=== PATIENT | female | born 1950 | race African-American/Black ===

== ENCOUNTER → 2016-04-26 | Day surgery (SDC) | payer MEDICARE, MEDICAID ==
[2016-04-26] VITALS (7 sets, daily range): BP systolic 134–150; BP diastolic 64–87
[~2016-04-26] VITALS: Ht 162.6 cm; Wt 71.7 kg
[~2016-04-26] MED LIST: AMLODIPINE BESYL5 MG ORAL; ASPIRIN EC325 MG ORAL; ATORVASTATIN CA40 MG ORAL; CIPROFLOXACIN500 M2 ORAL; CYCLOBENZAPRINE10 MG ORAL; DILTIAZEM 24HR120 M1 ORAL; ELIQUIS5 MG PO; GABAPENTIN600 MG ORAL; GLIMEPIRIDE1 MG ORAL; HYDROCHLOROTHIA25 MG ORAL; HYDROCODON-ACE1 EA13 ORAL; IBUPROFEN600 MG ORAL; JANUVIA25 MG ORAL; LIPITOR40 MG ORAL; LISINOPRIL10 MG ORAL; METFORMIN HCL500 M1 ORAL; PHENAZOPYRIDIN100 MG ORAL; Propofol 10mg/ml 20ml IV ONE; TRAMADOL HCL50 MG ORAL; TYLENOL EXTRA500 MG ORAL
--- NOTE | 2016-04-26 09:13 | Short Stay Surgery H&P ---
History of Present Illness History of Present Illness Chief Complaint see recent consult note HPI Abby Corey is a 65 year old female who was admitted on for Colon Screening Patient History Allergies: Coded Allergies: No Known Allergies (Unverified , 10/15/12) PAST MEDICAL HISTORY: Past Surgeries: Social History: Medication History Scheduled Apixaban (Eliquis), 5 MG PO Q12HR, (Reported) Aspirin* (Aspirin Ec*), 325 MG ORAL DAILY, (Reported) Atorvastatin Calcium* (Atorvastatin Calcium*), 40 MG ORAL BEDTIME, (Reported) Cyclobenzaprine Hcl* (Flexeril*), 10 MG ORAL DAILY, (Reported) Diltiazem Hcl* (Diltiazem 24HR Er*), 240 MG ORAL DAILY, (Reported) Gabapentin* (Gabapentin*), 600 MG ORAL THREE TIMES A DAY, (Reported) Glimepiride* (Glimepiride*), 2 MG ORAL BEFORE BREAKFAST, (Reported) Hydrochlorothiazide* (Hydrochlorothiazide*), 25 MG ORAL DAILY, (Reported) Hydrocodone Bit/Acetaminophen 10-325* (Hydrocodon-Acetaminophn 10-325*), 1 TAB ORAL Q8H, (Reported) Lisinopril* (Lisinopril*), 20 MG ORAL DAILY, (Reported) Metformin Hcl* (Metformin Hcl*), 1,000 MG ORAL TWICE A DAY, (Reported) Sitagliptin* (Januvia*), 100 MG ORAL DAILY, (Reported) Scheduled PRN Ibuprofen* (Motrin*), 800 MG ORAL Q8H PRN for For Pain, (Reported) Tramadol Hcl* (Ultram*), 50 MG ORAL Q6H PRN for For Pain, (Reported) Plan Attestation Are the patient's medical conditions optimized for surgery? GARY TREJO Apr 26, 2016 09:13
--- NOTE | 2016-04-26 09:14 | Pre-Procedure Note/Attestation ---
Pre-Procedure Note/Attestation Complete Prior to Procedure Planned Procedure: not applicable Procedure Narrative: colonoscopy Indications for Procedure Pre-Operative Diagnosis: screening Attestation I attest that I discussed the nature of the procedure; its benefits; risks and complications; and alternatives (and the risks and benefits of such alternatives ), prior to the procedure, with the patient (or the patient's legal patient account representative). I attest that, if there was a reasonable possibility of needing a blood transfusion, the patient (or the patient's legal patient account representative) was given the [facility] of Health Services standardized written summary, pursuant to the Hakan Oppelo Blood Safety Act ([place] Health and Safety Code # 1645, as amended). I attest that I re-evaluated the patient just prior to the surgery and that there has been no change in the patient's H&P, except as documented below: GARY TREJO Apr 26, 2016 09:13
[2016-04-26 10:57] LABS: BASOPHILS % (AUTO) 1.4 % (0.0-2.0); EOSINOPHILS % (AUTO) 0.6 % (0.0-3.0); LYMPHOCYTES % (AUTO) 29.2 % (20.0-45.0); MEAN CORPUSCULAR HEMOGLOBIN 31.2 PG (27.0-31.0); MEAN CORPUSCULAR VOLUME 97 FL (80-99); MEAN PLATELET VOLUME 7.1 FL (6.5-10.1); MONOCYTES % (AUTO) 10.7 % (1.0-10.0); NEUTROPHILS % (AUTO) 58.2 % (45.0-75.0); PLATELET COUNT 313 K/UL (150-450); RED BLOOD COUNT 4.29 M/UL (4.20-5.40); RED CELL DISTRIBUTION WIDTH 13.2 % (11.6-14.8); WHITE BLOOD COUNT 4.3 K/UL (4.8-10.8)
--- NOTE | 2016-04-26 11:05 | Anethesia Preoperative Eval ---
Anesthesia Pre-op PMH/ROS General Date of Evaluation: Apr 26, 2016 Time of Evaluation: 10:42 Anesthesiologist: clayton ASA Score: ASA 3 Mallampati Score Class I : Soft palate, uvula, fauces, pillars visible Class II: Soft palate, uvula, fauces visible Class III: Soft palate, base of uvula visible Class IV: Only hard plate visible Mallampati Classification: Class II Surgeon: margarito Diagnosis: screening Surgical Procedure: colonoscopy Anesthesia History: none Allergies: Coded Allergies: No Known Allergies (Unverified , 10/15/12) Past Medical History Cardiovascular: Reports: arrhythmia - A. 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 Exam Physician Exam Last Vital Signs Date Time Temp Pulse Resp B/P Pulse Ox O2 Delivery O2 Flow Rate FiO2 04/26/16 10:45 97.7 55 18 139/77 100 Room Air Airway Exam Mallampati Score: Class II Teeth: missing Anesthesia Pre-op A/P Labs Hematology Test 04/26/16 10:35 White Blood Count Pending Red Blood Count Pending Hemoglobin Pending Hematocrit Pending Mean Corpuscular Volume Pending Mean Corpuscular Hemoglobin Pending Mean Corpuscular Hemoglobin Concent Pending Red Cell Distribution Width Pending Platelet Count Pending Mean Platelet Volume Pending Neutrophils (%) (Auto) Pending Lymphocytes (%) (Auto) Pending Monocytes (%) (Auto) Pending Eosinophils (%) (Auto) Pending Basophils (%) (Auto) Pending Coagulation Test 04/26/16 10:35 Prothrombin Time Pending Prothromb Time International Ratio Pending Activated Partial Thromboplast Time Pending Chemistry Test 04/26/16 10:35 Sodium Level Pending Potassium Level Pending Chloride Level Pending Carbon Dioxide Level Pending Blood Urea Nitrogen Pending Creatinine Pending Estimat Glomerular Filtration Rate Pending Glucose Level Pending Calcium Level Pending Risk Assessment & Plan Plan: propofol Status Change Before Surgery: Perry Rai MD Apr 26, 2016 11:05
--- NOTE | 2016-04-26 11:07 | Immediate Post-Op Evaluation ---
Immediate Post-Op Evalulation Immediate Post-Op Evalulation Date of Evaluation: Apr 26, 2016 Time of Evaluation: 11:28 IV Fluids: 300 Blood Pressure Systolic: 143 Blood Pressure Diastolic: 77 Pulse Rate: 58 Respiratory Rate: 19 O2 Sat by Pulse Oximetry: 100 Temperature (Fahrenheit): 97.3 Pain Score (1-10): 0 Nausea: No Vomiting: No Complications none Patient Status: awake, patent, none Hydration Status: adequate Perry Tejada MD Apr 26, 2016 11:07
--- NOTE | 2016-04-26 11:08 | 48 Hour Post Anesthesia Eval ---
Post Anesthesia Evaluation Date of Evaluation: Apr 26, 2016 Time of Evaluation: 11:50 Blood Pressure Systolic: 140 0: 87 Pulse Rate: 59 Respiratory Rate: 20 Temperature (Fahrenheit): 98 O2 Sat by Pulse Oximetry: 99 Airway: patent Nausea: No Vomiting: No Pain Intensity: 0 Hydration Status: adequate Cardiopulmonary Status: stable Mental Status/LOC: patient returned to baseline Follow-up Care/Observations: n/a Post-Anesthesia Complications: tolerated well Follow-up care needed: ready to discharge Perry Tejada MD Apr 26, 2016 11:08
--- NOTE | 2016-04-26 11:11 | Endoscopy Procedure Note ---
Endoscopy Procedure Note Indication for Procedure: screening Procedures Performed: colonoscopy Operative Findings/Diagnosis: diverticulosis Specimen: none Pt Tolerated Procedure Well: Yes Estimated Blood Loss: none Anesthesiologist: clayton Anesthesia: MAC Implant(s) used?: No 50 yrs or older w/o bx or poly: No 10yrs. F/U not recommended: Yes If not recommended, why?: Above average risk 10 yrs. F/U needed: Yes 18 years or older w/prev. colo: No GARY TREJO Apr 26, 2016 11:11
[2016-04-26 11:14] LABS: ANION GAP 12 (5-15); CALCIUM 9.7 mg/dL (8.6-10.2); CARBON DIOXIDE 28 mEQ/L (20-30); CHLORIDE 101 mEQ/L (98-107); CREATININE 0.8 mg/dL (0.5-0.9); GLOMERULAR FILTRATION RATE > 60 mL/min (>60); HEMOLYSIS 68; POTASSIUM 4.8 mEQ/L (3.4-4.9); SODIUM 141 mEQ/L (135-145)
--- NOTE | 2016-04-26 20:08 | Procedure Note ---
DATE OF PROCEDURE: 04/26/2016 SURGEON: Rancho Cox M.D. PROCEDURE: Colonoscopy. ANESTHESIOLOGIST: Perry Tejada M.D. INSTRUMENT: Olympus adult flexible colonoscope. INDICATION: Screening colonoscopy. REASON FOR PROCEDURE: The procedure, risks, benefits, and possible consequences, including hemorrhage, aspiration, perforation and infection, and alternative treatments, were explained to the patient/legal guardian by Dr. Rancho Cox and the patient/legal guardian understood and accepted these risks. DESCRIPTION OF PROCEDURE: After informed consent was obtained and the patient was adequately sedated, first rectal exam was performed, which shows normal. Then, the scope was advanced from the rectum into the cecum. Quality of prep was very poor. Unfortunately, we could not see the cecum very well because of the poor prep. The prep was worse on the right colon contents to the left colon. This examination as I mentioned, was extremely limited. There was no obvious mass seen. There was no obvious large polyps seen. There was some scattered diverticulosis in the left colon, but again we could not see a small polyps most probably because of the prep. Retroflexion of rectum showed evidence of internal hemorrhoids. SUMMARY OF FINDINGS: 1. Extremely poor prep and inadequate examination for polyps specially small polyps given this prep. 2. Diverticulosis. 3. Internal hemorrhoids. RECOMMENDATIONS: We will discuss with the patient regarding the prep. We will consider repeat colonoscopy soon may be in three years given this poor prep. Rancho Cox M.D. DR: Hannah JOB#: [id number] CC: [facility]
--- NOTE | 2016-05-04 08:30 | Cardiology Report ---
APPROVED REPORT EKG Measurement Heart [id number] CO 126P57 [id number] Sinus bradycardia Otherwise normal ECG
== END | disposition home or self-care (01) ==
LOC: GAS 08:58
DX: Z12.11 Encounter for screening for malignant neoplasm of colon (principal); K57.30 Diverticulosis of large intestine without perforation or abscess without bleeding; K64.8 Other hemorrhoids; I48.91 Unspecified atrial fibrillation; E11.9 Type 2 diabetes mellitus without complications; Z79.84 Long term (current) use of oral hypoglycemic drugs; I69.959 Hemiplegia and hemiparesis following unspecified cerebrovascular disease affecting unspecified side; Z79.82 Long term (current) use of aspirin; Z79.899 Other long term (current) drug therapy
CPT/HCPCS: 36415; 80048; 82962; 85025; 85610; 85730; 93005; G0121; J2704; 94003; 94150

== ENCOUNTER → 2016-05-09 | Outpatient (CLI) | payer MEDICARE, MEDICAID ==
[~2016-05-09] MED LIST changes: -Propofol 10mg/ml 20ml IV ONE
--- NOTE | 2016-05-09 13:58 | GI Progress Note ---
Assessment/Plan Problems: (1) Colonic polyp ICD Codes: K63.5 - Polyp of colon SNOMED: 00925430 (2) GERD (gastroesophageal reflux disease) ICD Codes: K21.9 - Gastro-esophageal reflux disease without esophagitis SNOMED: 681148750 (3) Diarrhea ICD Codes: R19.7 - Diarrhea, unspecified SNOMED: 59199144 (4) Colonoscopy planned SNOMED: 127000848 Status: stable Status Narrative Seen with Dr. Cox. Assessment/Plan colonoscopy reviewed >> poor prep + small polyps RTC prn repeat colon x 1 year Subjective Gastrointestinal/Abdominal: Reports: no symptoms Objective T 98.4 BP 112/68 P 62 97 RA General Appearance: no apparent distress, alert Cardiovascular: normal rate Respiratory/Chest: normal breath sounds, no respiratory distress Abdominal Exam: normal bowel sounds, non tender, soft Extremities: normal range of motion Objective Endoscopy Procedure Note Indication for Procedure: screening Procedures Performed: colonoscopy Operative Findings/Diagnosis: diverticulosis GARY COX - Apr 26, 2016 11:11 Juanis Armstrong N.P. May 09, 2016 13:58
[2016-05-09 15:57] VITALS: BP 112/62
== END | disposition home or self-care (01) ==
LOC: PAN 13:02
DX: K63.5 Polyp of colon (principal); K21.9 Gastro-esophageal reflux disease without esophagitis; R19.7 Diarrhea, unspecified
CPT/HCPCS: 99211

== ENCOUNTER → 2016-06-27 | Outpatient (CLI) | payer MEDICARE, MEDICAID ==
--- NOTE | 2016-06-27 14:30 | GI Progress Note ---
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 Cox. Assessment/Plan EUS scheduled for 07-15-16 to evaluate elevated CA19-9 - NPO @ MN day prior procedure colonoscopy reviewed >> poor prep + small polyps RTC prn repeat colon x 1 year Subjective Subjective No GI symptoms noted at this time, here by referral of Dr. Robertson Objective T 98.4 BP 105/61 P 86 95 RA denies weight loss General Appearance: no apparent distress, alert Cardiovascular: normal rate Respiratory/Chest: normal breath sounds, no respiratory distress Abdominal Exam: normal bowel sounds, non tender, soft Extremities: normal range of motion Juanis Armstrong N.P. Jun 27, 2016 14:30
== END | disposition home or self-care (01) ==
LOC: PAN 14:04
DX: Z01.818 Encounter for other preprocedural examination (principal); R79.89 Other specified abnormal findings of blood chemistry; K21.9 Gastro-esophageal reflux disease without esophagitis; R19.7 Diarrhea, unspecified; K63.5 Polyp of colon
CPT/HCPCS: 99211

== ENCOUNTER → 2016-07-15 | Day surgery (SDC) | payer MEDICARE, MEDICAID ==
[~2016-07-15] VITALS: Ht 160 cm; Wt 70.8 kg
[2016-07-15] VITALS (11 sets, daily range): BP systolic 107–140; BP diastolic 56–73
[~2016-07-15] MED LIST changes: +Alfentanil 2ml Inj ONE; +Atropine Inj 1mg/10ml Syr IV PRN; +DiphenhydrAMINE 50mg/ml Inj IVP PRN; +Hydromorphone 0.5mg/0.5ml inj IVP PRN; +Ketorolac 30mg Inj IV PRN; +Ketorolac 60mg Inj IV PRN; +LORazepam Inj 2mg/ml 1ml IV PRN; +LR 1000ml 1,000 ML IVLG SCH; +LR 1000ml ONE; +Labetalol 5mg/ml 20ml vial IV PRN; +Lidocaine 1% Plain 30 ml INJ ONE; +Meperidine 25mg/ml Inj IV PRN; +Metoclopramide 10mg/2ml Inj IVP PRN; +Midazolam 2mg/2ml Inj IVP PRN; +Midazolam 2mg/2ml Inj ONE; +Norco 5mg/325mg tab ORAL PRN; +Norco 7.5mg/325mg tab ORAL PRN; +Oxycodone/Acetaminophen 5-325 ORAL PRN; +Propofol 10mg/ml 20ml IV ONE; +fentaNYL 100 mcg/2 mL IV PRN
--- NOTE | 2016-07-15 10:32 | Pre-Procedure Note/Attestation ---
Pre-Procedure Note/Attestation Complete Prior to Procedure Planned Procedure: not applicable Procedure Narrative: eus Indications for Procedure Pre-Operative Diagnosis: elevated ca 19 Attestation I attest that I discussed the nature of the procedure; its benefits; risks and complications; and alternatives (and the risks and benefits of such alternatives ), prior to the procedure, with the patient (or the patient's legal aircraft sales representative). I attest that, if there was a reasonable possibility of needing a blood transfusion, the patient (or the patient's legal aircraft sales representative) was given the [facility] Services standardized written summary, pursuant to the Hakan [place] Blood Safety Act ([place] Health and Safety Code # 1645, as amended). I attest that I re-evaluated the patient just prior to the surgery and that there has been no change in the patient's H&P, except as documented below: GARY TREJO Jul 15, 2016 10:31
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
--- NOTE | 2016-07-15 12:16 | Anethesia Preoperative Eval ---
Anesthesia Pre-op PMH/ROS General Date of Evaluation: Jul 15, 2016 Time of Evaluation: 11:59 Anesthesiologist: Duncan ASA Score: ASA 3 Mallampati Score Class I : Soft palate, uvula, fauces, pillars visible Class II: Soft palate, uvula, fauces visible Class III: Soft palate, base of uvula visible Class IV: Only hard plate visible Mallampati Classification: Class II Surgeon: Brooke Diagnosis: Abdominal Pain Surgical Procedure: Esophagael Ultrasound Anesthesia History: none Family History: no anesthesia problems Allergies: Coded Allergies: No Known Allergies (Unverified , 10/15/12) Medications: see eMAR Past Medical History Cardiovascular: Reports: CAD, HTN, other - HL Gastrointestinal/Genitourinary: Reports: GERD, other - Diverticulitis Neurologic/Psychiatric: Reports: CVA Endocrine: Reports: DM Anesthesia Pre-op Phys. Exam Physician Exam Last Vital Signs Date Time Temp Pulse Resp B/P Pulse Ox O2 Delivery O2 Flow Rate FiO2 07/15/16 09:34 99.0 63 18 122/73 100 Room Air Constitutional: NAD Neurologic: CN 2-12 intact Cardiovascular: RRR Respiratory: CTA Gastrointestinal: S/NT/ND Airway Exam Mallampati Score: Class II MO: limited ROM: limited Teeth: intact Anesthesia Pre-op A/P Risk Assessment & Plan Assessment: ASA 3 Plan: GA Status Change Before Surgery: Wally Manjarrez MD Jul 15, 2016 12:16
--- NOTE | 2016-07-15 12:18 | Endoscopy Procedure Note ---
Endoscopy Procedure Note Indication for Procedure: elevated ca 19 Procedures Performed: other - EUS Operative Findings/Diagnosis: pancreatitis Specimen: none Pt Tolerated Procedure Well: Yes Estimated Blood Loss: none Anesthesiologist: mackenzie Anesthesia: MAC Implant(s) used?: No 50 yrs or older w/o bx or poly: Not Applicable 10yrs. F/U not recommended: Not Applicable GARY TREJO Jul 15, 2016 12:18
--- NOTE | 2016-07-15 12:20 | Immediate Post-Op Evaluation ---
Immediate Post-Op Evalulation Immediate Post-Op Evalulation Procedure: Espohagael Ultrasound Date of Evaluation: Jul 15, 2016 Time of Evaluation: 12:39 IV Fluids: 800 LR Blood Products: 0 Estimated Blood Loss: 2 Urinary Output: 0 Blood Pressure Systolic: 140 Blood Pressure Diastolic: 65 Pulse Rate: 87 Respiratory Rate: 16 O2 Sat by Pulse Oximetry: 100 Temperature (Fahrenheit): 98.8 Pain Score (1-10): 2 Nausea: No Vomiting: No Complications 0 Patient Status: awake, reacts, patent, none Hydration Status: adequate Wally Song MD Jul 15, 2016 12:20
--- NOTE | 2016-07-15 12:21 | 48 Hour Post Anesthesia Eval ---
Post Anesthesia Evaluation Procedure: Esophagael Ultrasound Date of Evaluation: Jul 15, 2016 Time of Evaluation: 12:39 Blood Pressure Systolic: 140 0: 65 Pulse Rate: 77 Respiratory Rate: 18 Temperature (Fahrenheit): 98.6 O2 Sat by Pulse Oximetry: 100 Airway: patent Nausea: No Vomiting: No Pain Intensity: 2 Hydration Status: adequate Cardiopulmonary Status: Stable Mental Status/LOC: patient returned to baseline Follow-up Care/Observations: 0 Post-Anesthesia Complications: 0 Follow-up care needed: ready to discharge Wally Song MD Jul 15, 2016 12:21
--- NOTE | 2016-07-15 20:59 | Procedure Note ---
DATE OF PROCEDURE: 07/15/2016 SURGEON: Rancho Cox M.D. PROCEDURE: EUS. ANESTHESIA: Wally Song M.D. INSTRUMENT: Olympus EUS scope. INDICATION: Elevated CA 19-9. REASON FOR PROCEDURE: The procedure, risks, benefits, and possible consequences, including hemorrhage, aspiration, perforation and infection, and alternative treatments, were explained to the patient/legal guardian by Dr. Rancho Cox and the patient/legal guardian understood and accepted these risks. PROCEDURE: After informed consent was obtained and the patient was adequately sedated, EUS scope was advanced from mouth into second portion of the duodenum and pancreatic parenchyma was carefully examined through the gastroduodenal mucosa. Starting scanning at the GE junction, left adrenal gland without any obvious adenoma. The patient did not have any celiac axis lymphadenopathy. Then, pancreatic body and tail was examined while the scope was kept in the stomach. The patient had some evidence of some lobulation and stranding of the pancreatic parenchyma suggestive of maybe chronic pancreatitis. No evidence of any pancreatic duct dilatation. Next, the pancreatic duct was barely seen in the body of the pancreas. Then, scope was entered into the duodenal bulb and second portion of the duodenum where the pancreatic head was examined. First, gallbladder was seen with at least a 1 cm stone in it. Common bile duct was not dilated and the maximum dilator was measured about 6.5 mm and that was measured about 4.1 mm at the ampulla. Pancreatic duct was measured 3.6 mm at the ampulla. No obvious peripancreatic lymphadenopathy was seen. The patient tolerated the procedure well without any complication. SUMMARY FINDINGS: 1. Evidence of lobulation and stranding of the pancreatic parenchyma suggestive of chronic pancreatitis. 2. No pancreatic duct and no common bile duct dilatation. 3. Gallstones at least 1 cm. RECOMMENDATIONS: At this time, there is no obvious tumor seen in the common bile duct nor in the pancreas. The patient had symptoms of right upper quadrant pain and biliary colic. We will recommend cholecystectomy given the stone in the gallbladder. The patient also needs a workup for chronic pancreatitis. Rancho Cox M.D. DR: THIAGO JOB#: [id number] CC:
== END | disposition home or self-care (01) ==
LOC: GAS 08:59
DX: R94.8 Abnormal results of function studies of other organs and systems (principal); K80.80 Other cholelithiasis without obstruction; K86.9 Disease of pancreas, unspecified; I25.10 Atherosclerotic heart disease of native coronary artery without angina pectoris; E11.9 Type 2 diabetes mellitus without complications; I10 Essential (primary) hypertension; E78.5 Hyperlipidemia, unspecified; K21.9 Gastro-esophageal reflux disease without esophagitis; I48.91 Unspecified atrial fibrillation; Z86.010 Personal history of colon polyps; Z87.19 Personal history of other diseases of the digestive system; Z79.82 Long term (current) use of aspirin; Z86.73 Personal history of transient ischemic attack (TIA), and cerebral infarction without residual deficits; Z79.84 Long term (current) use of oral hypoglycemic drugs
CPT/HCPCS: 36415; 43237; 82150; 82962; 83690; 86301; J2001; J2250; J2704; J3490; J7120; 94003; 94150

== ENCOUNTER → 2016-07-25 | Outpatient (CLI) | payer MEDICARE, MEDICAID ==
[~2016-07-25] MED LIST changes: -Alfentanil 2ml Inj ONE; -Atropine Inj 1mg/10ml Syr IV PRN; -DiphenhydrAMINE 50mg/ml Inj IVP PRN; -Hydromorphone 0.5mg/0.5ml inj IVP PRN; -Ketorolac 30mg Inj IV PRN; -Ketorolac 60mg Inj IV PRN; -LORazepam Inj 2mg/ml 1ml IV PRN; -LR 1000ml 1,000 ML IVLG SCH; -LR 1000ml ONE; -Labetalol 5mg/ml 20ml vial IV PRN; -Lidocaine 1% Plain 30 ml INJ ONE; -Meperidine 25mg/ml Inj IV PRN; -Metoclopramide 10mg/2ml Inj IVP PRN; -Midazolam 2mg/2ml Inj IVP PRN; -Midazolam 2mg/2ml Inj ONE; -Norco 5mg/325mg tab ORAL PRN; -Norco 7.5mg/325mg tab ORAL PRN; -Oxycodone/Acetaminophen 5-325 ORAL PRN; -Propofol 10mg/ml 20ml IV ONE; -fentaNYL 100 mcg/2 mL IV PRN
--- NOTE | 2016-07-25 14:02 | GI Progress Note ---
Assessment/Plan Problems: (1) Chronic pancreatitis ICD Codes: K86.1 - Other chronic pancreatitis SNOMED: 656510874 (2) Diarrhea ICD Codes: R19.7 - Diarrhea, unspecified SNOMED: 15803846 (3) Encounter for diagnostic endoscopy ICD Codes: Z01.818 - Encounter for other preprocedural examination SNOMED: 221781005, 236416891 (4) GERD (gastroesophageal reflux disease) ICD Codes: K21.9 - Gastro-esophageal reflux disease without esophagitis SNOMED: 871093266 Status: stable Status Narrative Seen with Dr. Cox. Assessment/Plan EUS reviewed with patient, see full report below. RTC prn Subjective Subjective GERD Objective T 97.7 BP 141/77 P 57 100 RA Denies any weight loss. General Appearance: no apparent distress, alert Cardiovascular: normal rate Respiratory/Chest: normal breath sounds, no respiratory distress Abdominal Exam: normal bowel sounds, non tender, soft, no organomegaly, no mass Extremities: normal range of motion Objective DATE OF PROCEDURE: 07/15/2016 SURGEON: Rancho Cox M.D. PROCEDURE: EUS. SUMMARY FINDINGS: 1. Evidence of lobulation and stranding of the pancreatic parenchyma suggestive of chronic pancreatitis. 2. No pancreatic duct and no common bile duct dilatation. 3. Gallstones at least 1 cm. RECOMMENDATIONS: At this time, there is no obvious tumor seen in the common bile duct nor in the pancreas. The patient had symptoms of right upper quadrant pain and biliary colic. We will recommend cholecystectomy given the stone in the gallbladder. The patient also needs a workup for chronic pancreatitis. Juanis Armstrong N.P. Jul 25, 2016 14:02
== END | disposition home or self-care (01) ==
LOC: PAN 13:09
DX: Z01.818 Encounter for other preprocedural examination (principal); K86.1 Other chronic pancreatitis; R19.7 Diarrhea, unspecified; K21.9 Gastro-esophageal reflux disease without esophagitis; K80.80 Other cholelithiasis without obstruction
CPT/HCPCS: 99211

== ENCOUNTER 2016-11-07 13:12 | Outpatient (CLI) | payer MEDICARE, MEDICAID ==
--- NOTE | 2016-11-07 14:04 | Diagnostic Imaging Report ---
Indication: Osteoporosis Technique: 10 mm thick slices obtained through the L2, L3, and L4 vertebral bodies. Cortical and trabecular regions of interest were drawn. The average trabecular bone mineral density was calculated. Total dose length product 31 mGycm. CTDIvol(s) 3x3 mGy. Dose reduction achieved using automated exposure control Comparison: None Findings: The calculated bone mineral density is 102 mg ca-TOMAS/ml. The T score is -2.08. This indicates the patient's bone mineral density is 2.08 standard deviations below that of normal 20-year-old females. The Z score is 0.52. This indicates the patient's bone mineral density is 0.52 standard deviations above that of age-matched controls Impression: Patient mineral density is 10-25% below that of normal 20-year-old females. Patient is considered osteopenic by WHO criteria. Insufficiency fracture risk is moderate The CT scanner at [facility] is accredited by the [employer] and the scans are performed using protocols designed to limit radiation exposure to as low as reasonably achievable to attain images of sufficient resolution adequate for diagnostic evaluation.
== END 2016-11-07 15:12 | disposition home or self-care (01) ==
LOC: CAT 13:12
DX: M81.0 Age-related osteoporosis without current pathological fracture (principal)
CPT/HCPCS: 77078

== ENCOUNTER 2016-12-18 09:25 | Emergency (ER) | payer MEDICARE, MEDICAID ==
[~2016-12-18] VITALS: Ht 162.6 cm; Wt 71.7 kg
[2016-12-18 09:45] VITALS: BP 153/83
[2016-12-18] MEDS ORDERED: Morphine Sulfate 4mg/ml Inj IVP ONE (10:00)
[2016-12-18 10:27] LABS: BASOPHILS % (AUTO) 1.1 % (0.0-2.0); EOSINOPHILS % (AUTO) 0.1 % (0.0-3.0); LYMPHOCYTES % (AUTO) 26.4 % (20.0-45.0); MEAN CORPUSCULAR HEMOGLOBIN 32.3 PG (27.0-31.0); MEAN CORPUSCULAR HGB CONC 32.7 G/DL (32.0-36.0); MEAN CORPUSCULAR VOLUME 99 FL (80-99); MONOCYTES % (AUTO) 9.7 % (1.0-10.0); NEUTROPHILS % (AUTO) 62.7 % (45.0-75.0); PLATELET COUNT 314 K/UL (150-450); RED BLOOD COUNT 3.99 M/UL (4.20-5.40); RED CELL DISTRIBUTION WIDTH 13.5 % (11.6-14.8)
[2016-12-18 10:43] LABS: TROPONIN I < 0.30 ng/mL (<=0.30)
[2016-12-18 10:46] LABS: ALANINE AMINOTRANSFERASE 13 U/L (3-33); ALBUMIN/GLOBULIN RATIO 1.4 (1.0-2.7); ANION GAP 13 (5-15); ASPARTATE AMINO TRANSFERASE 15 U/L (5-40); CARBON DIOXIDE 31 mEQ/L (20-30); CHLORIDE 95 mEQ/L (98-107); CREATININE 0.9 mg/dL (0.5-0.9); GLOMERULAR FILTRATION RATE > 60 mL/min (>60); HEMOLYSIS 3; POTASSIUM 3.6 mEQ/L (3.4-4.9); SODIUM 139 mEQ/L (135-145); TOTAL PROTEIN 7.5 g/dL (6.6-8.7)
--- NOTE | 2016-12-18 11:01 | Diagnostic Imaging Report ---
Indication: Chest pain Comparison: 12/27/15 A single view chest radiograph was obtained. Findings: Cardiomediastinal appearance is within normal limits for age. Pulmonary vascularity is appropriate. The diaphragmatic contour is smooth and costophrenic angles are sharp. No pleural effusions are identified. The aorta is mildly calcified. The bones are osteopenic. Impression: No acute findings
[2016-12-18] MEDS ORDERED: NORCO 5-325 TA1 EACH ORAL (11:11)
[2016-12-18 11:40] VITALS: BP 130/74
--- NOTE | 2016-12-18 13:03 | Emergency Room Report ---
History of Present Illness General Chief Complaint: Pain Source: Patient, Medical Record Present Illness HPI 66-year-old female presents ED for evaluation. Patient says she is having pain in her back radiating up to her neck. Started 2 days ago after she was walking and did not pay attention and her feet hit the curb. Patient never fell or hit her head. Patient states she's been experiencing back and neck pain since. Has history of back pain. Pain is a 10 out of 10, sharp, worse with bending or twisting. No other aggravating relieving factors. Denies any other associated symptoms Allergies: Coded Allergies: No Known Allergies (Unverified , 10/15/12) Patient History Past Medical History: DM, CVA/TIA Past Surgical History: none Pertinent Family History: none Social History: Denies: smoking, alcohol use, drug use Now: No Immunizations: UTD Reviewed Nursing Documentation: PMH: Agreed, PSxH: Agreed Nursing Documentation-PMH Past Medical History: No History, Except For Hx Cardiac Problems: No Hx Hypertension: Yes Hx Diabetes: Yes - Hyperglycemia - Type II DM Hx Cancer: No Hx Gastrointestinal Problems: Yes Hx Neurological Problems: Yes Hx Cerebrovascular Accident: Yes - 2013 - R Hemiplegia Hx Speech Problem: Yes Hx Aphasia: Yes Hx Weakness: Yes - Right side Hx Neurologic Surgery: Yes - Bilateral carpal tunnel repair Review of Systems All Other Systems: negative except mentioned in HPI Physical Exam Vital Signs Date Time Temp Pulse Resp B/P (MAP) Pulse Ox O2 Delivery O2 Flow Rate FiO2 12/18/16 09:33 98.1 85 16 146/78 97 Room Air Sp02 EP Interpretation: reviewed, normal General Appearance: no apparent distress, alert, GCS 15, non-toxic Head: normocephalic, atraumatic Eyes: bilateral eye normal inspection, bilateral eye PERRL ENT: hearing grossly normal, normal pharynx, no angioedema, normal voice Neck: full range of motion, no bony tend, supple/symm/no masses, tender lateral Respiratory: chest non-tender, lungs clear, normal breath sounds, speaking full sentences Cardiovascular #1: regular rate, rhythm, no edema Cardiovascular #2: 2+ carotid (R), 2+ carotid (L), 2+ radial (R), 2+ radial (L) , 2+ dorsalis pedis (R), 2+ dorsalis pedis (L) Gastrointestinal: normal bowel sounds, non tender, soft, non-distended, no guarding, no rebound Rectal: deferred Genitourinary: normal inspection, no CVA tenderness Musculoskeletal: gait/station normal, normal range of motion, non-tender, other - paraspinal tenderness in thoracic and lumbar region Neurologic: alert, oriented x3, responsive, motor strength/tone normal, sensory intact, speech normal Psychiatric: judgement/insight normal, memory normal, mood/affect normal, no suicidal/homicidal ideation Reflexes: 3+ bicep (R), 3+ bicep (L), 3+ tricep (R), 3+ tricep (L), 3+ knee (R) , 3+ knee (L) Skin: normal color, no rash, warm/dry, well hydrated Lymphatic: no adenopathy Medical Decision Making Diagnostic Impression: Primary Impression: Back pain Qualified Codes: M54.9 - Dorsalgia, unspecified ER Course Hospital Course 66-year-old F presents ED complaining of back pain and neck pain. Differential diagnoses include: rib fracture, VA/unstable angina, contusion, muscle strain Clinical course Patient placed on stretcher. After initial history and physical I ordered labs , EKG, chest x-ray. labs reviewed- all electrolytes normal, troponins negative, no leukocytosis, hemoglobin/hematocrit stable EKG - NSR, no acute changes interrpreted by me Chest x-ray-no cardiomegaly, no rib fracture, no pneumothorax, no acute process Clinically exam is consistent with muscle strain. Improved after medication. Given negative workup with normal EKG patient will be discharged I. I feel this is a highly complex case requiring extensive working including EKG/Rhythm strip, Xray/CT/US, Blood/urine lab work, repeat exams while in ED, and administration of strong opiates/narcotics for pain control, admission to hospital or close patient follow up. Diagnosis - back pain Stable and discharged to home with Rx Lexi. Instructed to followup with PMD. Return to ED if symptoms recur or worsen Labs Test 12/18/16 10:10 White Blood Count 7.0 K/UL (4.8-10.8) Red Blood Count 3.99 M/UL (4.20-5.40) Hemoglobin 12.9 G/DL (12.0-16.0) Hematocrit 39.4 % (37.0-47.0) Mean Corpuscular Volume 99 FL (80-99) Mean Corpuscular Hemoglobin 32.3 PG (27.0-31.0) Mean Corpuscular Hemoglobin Concent 32.7 G/DL (32.0-36.0) Red Cell Distribution Width 13.5 % (11.6-14.8) Platelet Count 314 K/UL (150-450) Mean Platelet Volume 8.0 FL (6.5-10.1) Neutrophils (%) (Auto) 62.7 % (45.0-75.0) Lymphocytes (%) (Auto) 26.4 % (20.0-45.0) Monocytes (%) (Auto) 9.7 % (1.0-10.0) Eosinophils (%) (Auto) 0.1 % (0.0-3.0) Basophils (%) (Auto) 1.1 % (0.0-2.0) Sodium Level 139 mEQ/L (135-145) Potassium Level 3.6 mEQ/L (3.4-4.9) Chloride Level 95 mEQ/L (98-107) Carbon Dioxide Level 31 mEQ/L (20-30) Anion Gap 13 (5-15) Blood Urea Nitrogen 14 mg/dL (7-23) Creatinine 0.9 mg/dL (0.5-0.9) Estimat Glomerular Filtration Rate > 60 mL/min (>60) Glucose Level 180 mg/dL (74-106) Calcium Level 10.0 mg/dL (8.6-10.2) Total Bilirubin 0.8 mg/dL (0.0-1.2) Aspartate Amino Transf (AST/SGOT) 15 U/L (5-40) Alanine Aminotransferase (ALT/SGPT) 13 U/L (3-33) Alkaline Phosphatase 55 U/L (35-104) Total Creatine Kinase 100 U/L (26-140) Creatine Kinase MB 2.0 ng/mL (< 3.8) Creatine Kinase MB Relative Index 2.0 Troponin I < 0.30 ng/mL (<=0.30) Total Protein 7.5 g/dL (6.6-8.7) Albumin 4.4 g/dL (3.5-5.2) Globulin 3.1 g/dL Albumin/Globulin Ratio 1.4 (1.0-2.7) EKG Diagnostic Results Rate: normal Rhythm: NSR ST Segments: no acute changes ASA given to the pt in ED: No Rhythm Strip Diag. Results EP Interpretation: yes Rhythm: NSR, no PVC's, no ectopy Chest X-Ray Diagnostic Results Chest X-Ray Diagnostic Results : Chest X-Ray Ordered: Yes # of Views/Limited/Complete: 1 View Indication: Other - back pain EP Interpretation: Yes Interpretation: no consolidation, no effusion, no pneumothorax, no acute cardiopulmonary disease Impression: No acute disease Interpreting ER Provider: Electronically signed by Stevan Hall MD Last Vital Signs Date Time Temp Pulse Resp B/P (MAP) Pulse Ox O2 Delivery O2 Flow Rate FiO2 12/18/16 11:40 72 14 130/74 100 Room Air 12/18/16 09:45 98.5 Status: improved Disposition: HOME, SELF-CARE Condition: Improved Scripts Hydrocodone Bit/Acetaminophen 5-325* (NORCO 5-325*) 1 Each Tablet 1 TAB ORAL Q6H Y for For Pain, #10 TAB 0 Refills Prov: STEVAN HALL M.D. 12/18/16 Patient Instructions: Back Pain, Adult, [id number] STEVAN HALL M.D. Dec 18, 2016 13:03
--- NOTE | 2017-01-05 16:13 | Cardiology Report ---
APPROVED REPORT EKG Measurement Heart [id number] Normal sinus rhythm Possible Left atrial enlargement Borderline ECG
== END 2016-12-18 12:15 | disposition home or self-care (01) ==
LOC: EMR 09:59
DX: M54.9 Dorsalgia, unspecified (principal); M54.2 Cervicalgia; I10 Essential (primary) hypertension; I69.351 Hemiplegia and hemiparesis following cerebral infarction affecting right dominant side; I69.320 Aphasia following cerebral infarction
CPT/HCPCS: 36415; 71010; 80053; 82550; 82553; 84484; 85025; 93005; 96374; 99284; J2270; J7040; 96360; 96361

== ENCOUNTER 2017-07-24 12:20 | Emergency (ER) | payer MEDICARE, MEDICAID ==
[~2017-07-24] VITALS: Ht 165.1 cm; Wt 72.1 kg
[~2017-07-24 12:20] MED LIST changes: +NORCO 5-325 TA1 EACH ORAL
[2017-07-24 12:42] VITALS: BP 151/91
[2017-07-24 13:10] LABS: APPEARANCE,URINE SLIGHTLY CLOUDY; BILIRUBIN, URINE NEGATIVE (NEGATIVE); GLUCOSE, URINE (UA) 4+ (NEGATIVE); KETONES,URINE NEGATIVE (NEGATIVE); LEUKOCYTE ESTERASE ,URINE 3+ (NEGATIVE); NITRITE,URINE POSITIVE (NEGATIVE); PH,URINE 5 (4.5-8.0); PROTEIN,URINE 2+ (NEGATIVE); UROBILINOGEN,URINE NORMAL MG/DL (0.0-1.0)
[2017-07-24 13:11] LABS: COLOR,URINE YELLOW
--- NOTE | 2017-07-24 13:21 | Emergency Room Report ---
History of Present Illness General Chief Complaint: Female Urogenital Problems Source: Patient, Medical Record Present Illness HPI 67-year-old female presents to the emergency department complaining of urinary frequency 4 days. Patient also reports generalized body aches that she rates as 3 out of 10 in severity. Patient denies dysuria, hematuria or external vaginal lesions. Patient states she has a history of diabetes and takes metformin. She denies polydipsia. Patient reports that she does not regularly check her blood sugar. Patient also states she is on Eliquis with a she has a history of CVA. Denies trauma or fall. Denies fevers, chills, abdominal pain or tenderness. She denies polyuria she states she did have a headache a few days ago which has resolved. Denies CP, Palpitations, LOC, AMS, dizziness, Changes in Vision, Sensation, paresthesias, or a sudden severe headache. Allergies: Coded Allergies: No Known Allergies (Unverified , 10/15/12) Patient History Past Medical History: see triage record, DM, CVA/TIA Past Surgical History: none Pertinent Family History: none Reviewed Nursing Documentation: PMH: Agreed; PSxH: Agreed Nursing Documentation-PMH Past Medical History: No History, Except For Hx Cardiac Problems: No Hx Hypertension: Yes Hx Diabetes: Yes - Hyperglycemia - Type II DM Hx Cancer: No Hx Gastrointestinal Problems: Yes Hx Neurological Problems: Yes Hx Cerebrovascular Accident: Yes - 2013 - R Hemiplegia Hx Speech Problem: Yes Hx Aphasia: Yes Hx Weakness: Yes - Right side Hx Neurologic Surgery: Yes - Bilateral carpal tunnel repair Review of Systems All Other Systems: negative except mentioned in HPI Physical Exam Vital Signs Date Time Temp Pulse Resp B/P (MAP) Pulse Ox O2 Delivery O2 Flow Rate FiO2 18 12:25 98.0 67 18 154/90 96 Room Air 98.1 Sp02 EP Interpretation: reviewed, normal General Appearance: no apparent distress, alert, GCS 15, non-toxic Head: normocephalic, atraumatic ENT: hearing grossly normal, normal voice, moist mucus membranes Neck: full range of motion Respiratory: lungs clear, normal breath sounds, no wheezing, speaking full sentences Cardiovascular #1: regular rate, rhythm Gastrointestinal: non tender, soft Rectal: deferred Genitourinary: normal inspection, no CVA tenderness Musculoskeletal: back normal, gait/station normal, normal range of motion Neurologic: alert, oriented x3, responsive, motor strength/tone normal, sensory intact, normal gait, speech normal, grossly normal Psychiatric: judgement/insight normal Skin: normal color, no rash, warm/dry, well hydrated Lymphatic: no adenopathy Medical Decision Making PA Attestation Dr. Vargas is my supervising Physician whom patient management has been discussed with. Diagnostic Impression: Primary Impression: UTI (lower urinary tract infection) Additional Impression: TYPE 2 DIABETES MELLITUS WITH HYPERGLYCEMIA ER Course 67-year-old female presents to the emergency department complaining of urinary frequency 4 days. Patient also reports generalized body aches that she rates as 3 out of 10 in severity. Patient denies dysuria, hematuria or external vaginal lesions. Patient states she has a history of diabetes and takes metformin. She denies polydipsia. Patient reports that she does not regularly check her blood sugar. Patient also states she is on Eliquis with a she has a history of CVA. Denies trauma or fall. Denies fevers, chills, abdominal pain or tenderness. She denies polyuria she states she did have a headache a few days ago which has resolved. Denies CP, Palpitations, LOC, AMS, dizziness, Changes in Vision, Sensation, paresthesias, or a sudden severe headache. Ddx considered but are not limited to UTi , Pyelo, STI, Stone, Cystitis, DM, DI , hyperglycemia just to name a few. Vital signs: are WNL, pt. is afebrile H&PE are most consistent with UTI - will also assess glucose. ORDERS: - UA labs are attached - Nitrite Positive with presence of yeast as well. - 4+ glucose, and elevated protein in the urine ED INTERVENTIONS: None required at this time. -D/w pt. treatment with abx and Monistat, and to follow up with her PMD for evaluation of her glycemic control. DISCHARGE: At this time pt. is stable for d/c to home. Will provide printed patient care instructions, and any necessary prescriptions. Care plan and follow up instructions have been discussed with the patient prior to discharge. Labs Test 07/24/17 12:30 Urine Color Yellow Urine Appearance Slightly cloudy Urine pH 5 (4.5-8.0) Urine Specific [place] 1.025 (1.005-1.035) Urine Protein 2+ (NEGATIVE) Urine Glucose (UA) 4+ (NEGATIVE) Urine Ketones Negative (NEGATIVE) Urine Occult Blood 3+ (NEGATIVE) Urine Nitrite Positive (NEGATIVE) Urine Bilirubin Negative (NEGATIVE) Urine Urobilinogen Normal MG/DL (0.0-1.0) Urine Leukocyte Esterase 3+ (NEGATIVE) Urine RBC 10-15 /HPF (0 - 2) Urine WBC 60-80 /HPF (0 - 2) Urine Squamous Epithelial Cells Moderate /LPF (NONE/OCC) Urine Bacteria Many /HPF (NONE) Urine Yeast Few /HPF (NONE) Last Vital Signs Date Time Temp Pulse Resp B/P (MAP) Pulse Ox O2 Delivery O2 Flow Rate FiO2 07/24/17 12:42 98.1 85 18 151/91 99 Room Air 98.1 Disposition: HOME, SELF-CARE Condition: Stable Scripts Miconazole Nitrate (MONISTAT 7) 44 Gm Cmb.pf.crm 1 APPLIC VG QHS, #44 GM Prov: Inna Anen 07/24/17 Nitrofurantoin Monohyd/M-Cryst* (MACROBID 100 MG*) 100 Mg Capsule 100 MG ORAL EVERY 12 HOURS for 7 Days, #14 CAP Prov: Inna Anne 07/24/17 Referrals: NOT CHOSEN IPA/MD,REFERRING (PCP) Patient Instructions: Hyperglycemia, Qfen-nj-Ponh, Urinary Tract Infection Additional Instructions: Take medications as directed. * your glucose was 237 today * normal is 80- 120. Follow up with a Primary Care Provider in 3-5 days, even if your symptoms have resolved. So your glucose control can be evaluated. --Please review list of primary care clinics, if you do not already have a primary care provider Return sooner to ED if new symptoms occur, or current symptoms become worse. - Please note that this Emergency Department Report was dictated using [employer] mail clerk technology software, occasionally this can lead to erroneous entry secondary to interpretation by the dictation equipment. Inna Anne Jul 24, 2017 13:21
[2017-07-24] MEDS ORDERED: NITROFURANTOIN100 M2 ORAL (13:52)
[2017-07-24] MEDS ORDERED: MONISTAT 744 GM VG (13:52)
[2017-07-24 14:00] VITALS: BP 133/74
== END 2017-07-24 13:59 | disposition home or self-care (01) ==
LOC: EMR 13:16
DX: N39.0 Urinary tract infection, site not specified (principal); E11.65 Type 2 diabetes mellitus with hyperglycemia; I69.351 Hemiplegia and hemiparesis following cerebral infarction affecting right dominant side
CPT/HCPCS: 81003; 82962; 87086; 87181; 99284

== ENCOUNTER 2017-12-02 12:54 | Inpatient (IN) | payer MEDICARE, MEDICAID ==
[~2017-12-02] VITALS: Ht 160 cm; Wt 67.6 kg
[~2017-12-02 12:54] MED LIST changes: +MONISTAT 744 GM VG; +NITROFURANTOIN100 M2 ORAL
[2017-12-02 13:00] VITALS: BP 125/94
--- NOTE | 2017-12-02 13:25 | Emergency Room Report ---
History of Present Illness General Chief Complaint: Generalized Weakness Source: Patient Present Illness HPI Patient is a 59-year-old female who presented after increased generalized weakness and palpitations. Patient prior history of diabetes. She had prior history of irregular heartbeat in the past. Patient currently anticoagulated with Elliquis. She reports having increased rapid heartbeat since last night. This had sudden onset. Patient denies any vomiting or chest discomfort. She reports having some mild shortness of breath. Allergies: Coded Allergies: No Known Allergies (Unverified , 10/15/12) Patient History Past Medical History: see triage record Reviewed Nursing Documentation: PMH: Agreed; PSxH: Agreed Nursing Documentation-PMH Past Medical History: No History, Except For Hx Cardiac Problems: No Hx Hypertension: Yes Hx Diabetes: Yes - Hyperglycemia - Type II DM Hx Cancer: No Hx Gastrointestinal Problems: Yes Hx Neurological Problems: Yes Hx Cerebrovascular Accident: Yes - 2013 - R Hemiplegia Hx Speech Problem: Yes Hx Aphasia: Yes Hx Weakness: Yes - Right side Hx Neurologic Surgery: Yes - Bilateral carpal tunnel repair Review of Systems All Other Systems: negative except mentioned in HPI Physical Exam Vital Signs Date Time Temp Pulse Resp B/P (MAP) Pulse Ox O2 Delivery O2 Flow Rate FiO2 12/02/17 12:58 96.0 130 20 138/85 96 Room Air 96.1 Sp02 EP Interpretation: reviewed, normal General Appearance: normal inspection, well appearing, no apparent distress, alert, GCS 15 Head: atraumatic ENT: normal ENT inspection, hearing grossly normal, normal voice Neck: normal inspection, full range of motion, supple, no bony tend Respiratory: normal inspection, lungs clear, normal breath sounds, no respiratory distress, no retraction, no wheezing Cardiovascular #1: no edema, tachycardia, irregularly irregular Gastrointestinal: normal inspection, normal bowel sounds, non tender, soft, no guarding, no hernia Genitourinary: no CVA tenderness Musculoskeletal: normal inspection, back normal, normal range of motion Neurologic: normal inspection, alert, oriented x3, responsive, school health aide III-XII nml as tested, speech normal Psychiatric: normal inspection, judgement/insight normal, mood/affect normal Skin: normal inspection, normal color, no rash Medical Decision Making Diagnostic Impression: Primary Impression: Atrial fibrillation with RVR ER Course Patient presented for palpitations. The differential diagnosis included was not limited to arrhythmia, thyroid storm, sepsis, anemia, myocardial infarction , alcohol withdrawal, stimulant abuse, caffeine overdose among othersEKG interpreted by showed atrial fibrillation with rapid ventricular response with rate of 138. The patient was given IV Cardizem. The patient was noted to have some improvement in her heart rate after medications.The BNP was noted be markedly elevated consistent with possible heart failure. The patient will likely require admission for further cardiac monitoring and the rate control. The patient was endorsed to Dr. Hall pending authorization for admission or transfer. Labs Test 12/02/17 13:12 White Blood Count 5.6 K/UL (4.8-10.8) Red Blood Count 4.49 M/UL (4.20-5.40) Hemoglobin 13.9 G/DL (12.0-16.0) Hematocrit 42.3 % (37.0-47.0) Mean Corpuscular Volume 94 FL (80-99) Mean Corpuscular Hemoglobin 30.9 PG (27.0-31.0) Mean Corpuscular Hemoglobin Concent 32.9 G/DL (32.0-36.0) Red Cell Distribution Width 12.6 % (11.6-14.8) Platelet Count 347 K/UL (150-450) Mean Platelet Volume 7.5 FL (6.5-10.1) Neutrophils (%) (Auto) 53.5 % (45.0-75.0) Lymphocytes (%) (Auto) 33.7 % (20.0-45.0) Monocytes (%) (Auto) 10.2 % (1.0-10.0) Eosinophils (%) (Auto) 0.7 % (0.0-3.0) Basophils (%) (Auto) 1.9 % (0.0-2.0) Prothrombin Time 10.3 SEC (9.30-11.50) Prothromb Time International Ratio 1.0 (0.9-1.1) Activated Partial Thromboplast Time 26 SEC (23-33) EKG Diagnostic Results Rate: tachycardiac - afib rvr Rhythm Strip Diag. Results EP Interpretation: yes Rhythm: no PVC's, no ectopy, other - tachycardia Chest X-Ray Diagnostic Results Chest X-Ray Diagnostic Results : Chest X-Ray Ordered: Yes # of Views/Limited/Complete: 1 View Indication: Chest Pain EP Interpretation: No Interpretation: no consolidation, no effusion, no pneumothorax, no acute cardiopulmonary disease Impression: No acute disease Electronically Signed by: Electronically signed by Dr. Dany Vargas M.D. Last Vital Signs Date Time Temp Pulse Resp B/P (MAP) Pulse Ox O2 Delivery O2 Flow Rate FiO2 12/02/17 12:58 96.0 130 20 138/85 96 Room Air 96.1 Status: unchanged Disposition: ADMITTED INPATIENT Condition: Serious Dany Vargas MD Dec 02, 2017 13:25
[2017-12-02] MEDS ORDERED: dilTIAZem HCl 25mg/5ml Inj IVP ONE ×2 (13:30→15:30)
[2017-12-02] MEDS ORDERED: Digoxin 0.5mg/2ml Inj IVP ONE (13:30)
[2017-12-02 13:51] LABS: BASOPHILS % (AUTO) 1.9 % (0.0-2.0); EOSINOPHILS % (AUTO) 0.7 % (0.0-3.0); HEMATOCRIT 42.3 % (37.0-47.0); HEMOGLOBIN 13.9 G/DL (12.0-16.0); LYMPHOCYTES % (AUTO) 33.7 % (20.0-45.0); MEAN CORPUSCULAR VOLUME 94 FL (80-99); MONOCYTES % (AUTO) 10.2 % (1.0-10.0); NEUTROPHILS % (AUTO) 53.5 % (45.0-75.0); PLATELET COUNT 347 K/UL (150-450); RED BLOOD COUNT 4.49 M/UL (4.20-5.40); RED CELL DISTRIBUTION WIDTH 12.6 % (11.6-14.8); WHITE BLOOD COUNT 5.6 K/UL (4.8-10.8)
[2017-12-02 13:57] LABS: ANION GAP 6 mmol/L (5-15); BLOOD UREA NITROGEN 14 mg/dL (7-18); CALCIUM 9.1 MG/DL (8.5-10.1); CARBON DIOXIDE 29 MMOL/L (21-32); CHLORIDE 105 MMOL/L (98-107); CREATININE 0.9 MG/DL (0.55-1.30); POTASSIUM 3.4 MMOL/L (3.5-5.1); SODIUM 140 MMOL/L (136-145)
[2017-12-02 14:11] LABS: ALANINE AMINOTRANSFERASE 18 U/L (12-78); ALBUMIN 3.6 G/DL (3.4-5.0); ALKALINE PHOSPHATASE 72 U/L (46-116); ASPARTATE AMINO TRANSFERASE 14 U/L (15-37); BILIRUBIN,TOTAL 0.4 MG/DL (0.2-1.0); CKMB 2.1 NG/ML (0.0-3.6); CREATINE KINASE 79 U/L (26-308)
[2017-12-02 15:00] VITALS: BP 143/117
--- NOTE | 2017-12-02 15:15 | Diagnostic Imaging Report ---
Indication: Shortness of breath Technique: One view of the chest Comparison: 12/18/2016 Findings: The lungs and pleural spaces are clear. The heart size is upper limits of normal. The aorta is tortuous and calcified.. No significant interim change Impression: Negative
[2017-12-02 16:52] VITALS: BP 145/63
[2017-12-02 18:26] VITALS: BP 140/85
[2017-12-02 18:46] VITALS: BP 165/79
[2017-12-02 20:00] VITALS: BP 135/74
[2017-12-02] MEDS: Eliquis 2.5mg tablet ORAL SCH (21:38)
[2017-12-02] MEDS: Metoprolol Tartrate 50mg tab ORAL SCH (21:38)
[2017-12-03] VITALS: BP 145/68
[2017-12-03 04:00] VITALS: BP 141/85
[2017-12-03 07:39] VITALS: BP 135/72
[2017-12-03 07:41] LABS: BASOPHILS % (AUTO) 1.7 % (0.0-2.0); EOSINOPHILS % (AUTO) 1.7 % (0.0-3.0); HEMATOCRIT 42.7 % (37.0-47.0); HEMOGLOBIN 14.2 G/DL (12.0-16.0); LYMPHOCYTES % (AUTO) 45.1 % (20.0-45.0); MEAN CORPUSCULAR VOLUME 92 FL (80-99); MONOCYTES % (AUTO) 10.1 % (1.0-10.0); NEUTROPHILS % (AUTO) 41.3 % (45.0-75.0); PLATELET COUNT 314 K/UL (150-450); RED BLOOD COUNT 4.63 M/UL (4.20-5.40); RED CELL DISTRIBUTION WIDTH 12.4 % (11.6-14.8); WHITE BLOOD COUNT 4.7 K/UL (4.8-10.8)
[2017-12-03] MEDS: Eliquis 2.5mg tablet ORAL SCH ×2 (08:04→20:51)
[2017-12-03] MEDS: metFORMIN 500mg tab ORAL SCH ×2 (08:05→17:16)
[2017-12-03] MEDS: Lisinopril 20mg tab ORAL SCH (08:06)
[2017-12-03] MEDS: Metoprolol Tartrate 50mg tab ORAL SCH ×2 (08:07→20:51)
[2017-12-03 08:09] LABS: ALANINE AMINOTRANSFERASE 18 U/L (12-78); ALBUMIN 3.4 G/DL (3.4-5.0); ALBUMIN/GLOBULIN RATIO 0.9 (1.0-2.7); ALKALINE PHOSPHATASE 71 U/L (46-116); ANION GAP 7 mmol/L (5-15); ASPARTATE AMINO TRANSFERASE 15 U/L (15-37); BILIRUBIN,TOTAL 0.6 MG/DL (0.2-1.0); BLOOD UREA NITROGEN 15 mg/dL (7-18); CALCIUM 9.2 MG/DL (8.5-10.1); CARBON DIOXIDE 29 MMOL/L (21-32); CHLORIDE 105 MMOL/L (98-107); CREATININE 0.8 MG/DL (0.55-1.30); POTASSIUM 3.5 MMOL/L (3.5-5.1); SODIUM 141 MMOL/L (136-145)
[2017-12-03] MEDS ORDERED: Eliquis 2.5mg tablet ORAL SCH (09:00)
[2017-12-03 11:51] VITALS: BP 147/71
--- NOTE | 2017-12-03 14:57 | Cardiology Report ---
APPROVED REPORT EXAM: Two-dimensional and M-mode echocardiogram with Doppler and color Doppler. INDICATION A-FIB M-Mode DIMENSIONS IVSd1.7 (0.7-1.1cm)Left Atrium (MM)3.0 (1.6-4.0cm) LVDd3.9 (3.5-5.6cm)Aortic Root2.9 (2.0-3.7cm) PWd1.8 (0.7-1.1cm)Aortic Cusp Exc.1.8 (1.5-2.0cm) IVSs2.2 cm LVDs2.0 (2.5-4.0cm) PWs1.6 cm Normal left ventricular chamber size, systolic function and wall motion. Left ventricular ejection fraction estimated to be 65-70%. No evidence of left ventricular hypertrophy. No evidence of pericardial effusion. All other cardiac chamber sizes are within normal limits. Focal aortic valve sclerosis with adequate cusp excursion. Thickened mitral valve leaflets with normal excursion. Mitral annulus and aortic root calcification. Pulmonic valve not well visualized. Normal tricuspid valve structure. IVC at normal at size with physiologic collapse. A color flow and spectral Doppler study was performed and revealed: No aortic regurgitation. Moderate mitral regurgitation. Normal left ventricular diastolic function . Mild tricuspid regurgitation. Tricuspid systolic velocities suggests peak right ventricular systolic pressure of 40 mmHg,consistent with mild pulmonary hypertension. Mild Pulmonic regurgitation present.
--- NOTE | 2017-12-03 15:52 | Cardiology Report ---
APPROVED REPORT EKG Measurement Heart [id number] Sinus bradycardia Nonspecific ST and T wave abnormality Abnormal ECG
[2017-12-03 16:00] VITALS: BP 145/71
[2017-12-03 20:00] VITALS: BP 134/70
--- NOTE | 2017-12-03 23:39 | Cardiology Progress Note ---
Objective Last 24 Hour Vital Signs Date Time Temp Pulse Resp B/P (MAP) Pulse Ox O2 Delivery O2 Flow Rate FiO2 12/03/17 21:00 Room Air 12/03/17 20:51 63 134/70 12/03/17 20:00 97.9 63 20 134/70 (91) 98 97.9 12/03/17 20:00 54 12/03/17 16:00 73 12/03/17 16:00 97.7 60 16 145/71 (95) 96 97.7 12/03/17 12:00 66 12/03/17 11:51 97.2 57 18 147/71 (96) 98 97.2 12/03/17 09:00 Room Air 12/03/17 08:07 67 12/03/17 08:07 67 135/72 12/03/17 08:06 135/72 12/03/17 08:00 55 12/03/17 07:39 97.2 67 18 135/72 (93) 98 97.2 12/03/17 04:00 58 12/03/17 04:00 98.1 52 18 141/85 (103) 99 98.1 12/03/17 00:00 52 12/03/17 00:00 98.4 60 18 145/68 (93) 100 98.4 Intake and Output 12/02/17 12/03/17 19:00 07:00 Intake Total 50 ml Output Total 250 ml 450 ml Balance -250 ml -400 ml Intake Oral 50 ml Output Urine Total 250 ml 450 ml # Voids 1 Laboratory Tests Test 12/03/17 06:30 White Blood Count 4.7 K/UL (4.8-10.8) L Red Blood Count 4.63 M/UL (4.20-5.40) Hemoglobin 14.2 G/DL (12.0-16.0) Hematocrit 42.7 % (37.0-47.0) Mean Corpuscular Volume 92 FL (80-99) Mean Corpuscular Hemoglobin 30.7 PG (27.0-31.0) Mean Corpuscular Hemoglobin Concent 33.3 G/DL (32.0-36.0) Red Cell Distribution Width 12.4 % (11.6-14.8) Platelet Count 314 K/UL (150-450) Mean Platelet Volume 7.0 FL (6.5-10.1) Neutrophils (%) (Auto) 41.3 % (45.0-75.0) L Lymphocytes (%) (Auto) 45.1 % (20.0-45.0) H Monocytes (%) (Auto) 10.1 % (1.0-10.0) H Eosinophils (%) (Auto) 1.7 % (0.0-3.0) Basophils (%) (Auto) 1.7 % (0.0-2.0) Sodium Level 141 MMOL/L (136-145) Potassium Level 3.5 MMOL/L (3.5-5.1) Chloride Level 105 MMOL/L (98-107) Carbon Dioxide Level 29 MMOL/L (21-32) Anion Gap 7 mmol/L (5-15) Blood Urea Nitrogen 15 mg/dL (7-18) Creatinine 0.8 MG/DL (0.55-1.30) Estimat Glomerular Filtration Rate > 60 mL/min (>60) Glucose Level 181 MG/DL (74-106) H Calcium Level 9.2 MG/DL (8.5-10.1) Total Bilirubin 0.6 MG/DL (0.2-1.0) Aspartate Amino Transf (AST/SGOT) 15 U/L (15-37) Alanine Aminotransferase (ALT/SGPT) 18 U/L (12-78) Alkaline Phosphatase 71 U/L (46-116) Total Protein 7.1 G/DL (6.4-8.2) Albumin 3.4 G/DL (3.4-5.0) Globulin 3.7 g/dL Albumin/Globulin Ratio 0.9 (1.0-2.7) L Alfonso Villagran MD Dec 03, 2017 23:39
[2017-12-04] VITALS: BP 141/78
--- NOTE | 2017-12-04 03:30 | Consultation ---
DATE OF CONSULTATION: 12/02/2017 CARDIOLOGY CONSULTATION CONSULTING PHYSICIAN: Alfonso Villagran M.D. REFERRING PHYSICIAN: Liv Hinton M.D. REASON FOR CONSULTATION: Tachycardia. HISTORY OF PRESENT ILLNESS: The patient is a very unfortunate 67-year-old female, who presents to the hospital with generalized weakness and palpitation. The patient has a prior history of irregular heartbeat and anticoagulated with Eliquis. The patient started to notice a rapid heartbeat with associated mild shortness of breath. A 12-lead electrocardiogram in the emergency department was significant for atrial fibrillation with a rapid ventricular response. The patient was admitted to telemetry for further evaluation and management. PAST MEDICAL HISTORY: 1. Paroxysmal atrial fibrillation. 2. Diabetes mellitus type 2. 3. Hypertension. 4. Gastrointestinal disease. 5. History of CVA with right hemiplegia in 2012. 6. History of carpal tunnel syndrome. PAST SURGICAL HISTORY: Bilateral carpal tunnel repair. ALLERGIES: No known drug allergies. LIST OF MEDICATIONS: 1. Apixaban 5 mg p.o. twice daily. 2. Aspirin 325 mg daily. 3. Atorvastatin 40 mg at bedtime. 4. Flexeril 10 mg p.o. daily. 5. Diltiazem 240 mg daily. 6. Gabapentin 600 mg three times a day. 7. Glimepiride 2 mg before breakfast. 8. Hydrochlorothiazide 25 mg daily. 9. Hydrocodone/acetaminophen 10/325 one tablet q.8 hours. 10. [place] 5/325 one tablet q.6 hours p.r.n. pain. 11. Lisinopril 20 mg p.o. daily. 12. Metformin 1000 mg twice a day. 13. Monistat 7 one application via vaginal at bedtime. 14. Macrobid 100 mg q.12 hours. REVIEW OF SYSTEMS: HEENT: Denies any headache, diplopia, or blurred vision. CONSTITUTIONAL: Complains of generalized weakness, but no fever, chills, or night sweats. CARDIOVASCULAR: Denies any chest pain, shortness of breath, PND, or orthopnea. She complains of irregular heartbeat. Denies any syncope. PULMONARY: Denies any cough, hemoptysis, or wheezing. GASTROINTESTINAL: Denies any nausea, vomiting, diarrhea, constipation, abdominal pain, or GI bleed. GENITOURINARY: Denies any hematuria, dysuria, or incontinence. PHYSICAL EXAMINATION: VITAL SIGNS: Blood pressure is 138/85, pulse of 130, respirations 20, and O2 saturation 96% on room air. GENERAL: The patient is a 67-year-old lady, in no respiratory distress. HEENT: Anicteric. Pupils are equal, round, and reactive to light and accommodation. Extraocular muscles intact. NECK: JVP less than 5 cm. No carotid bruit. Carotid upstrokes 2+ bilaterally. CARDIOVASCULAR: Normal S1, S2. Regular rate and rhythm. No murmurs, gallops, or rubs. PMI is at fourth intercostal space left midclavicular line. LUNGS: Clear. EXTREMITIES: No evidence of edema, clubbing, or cyanosis. LABORATORY DATA: WBC is 5.6, hemoglobin of 13.9, hematocrit of 42.3, and platelet counts is 347. Sodium 140, potassium 3.4, chloride 105, bicarbonate 29, BUN of 14, and creatinine 0.9. Glucose is 206. Calcium is 9.1. ProBNP is 2162. Troponin I was 0.006. INR is 1.0. Chest x-ray was negative. A 2D echocardiography shows normal LV systolic size and function, LVEF 65% to 70%, moderate mitral regurgitation, mild tricuspid regurgitation with right ventricular systolic pressure measured at 40 mmHg. There is also mild pulmonary regurgitation. ASSESSMENT AND PLAN: This is a very unfortunate 67-year-old female, who is seen in Cardiology consultation with tachycardia. 1. Paroxysmal atrial fibrillation with rapid ventricular response, responded well to Cardizem therapy given to her. 2. Continue monitoring her rhythm. 3. Right hemiplegia, most likely the mechanism of the above findings. 4. Diabetes mellitus. 5. Cerebrovascular accident with right hemiplegia. 6. Carpal tunnel syndrome. I would like to thank Dr. Hinton for the courtesy of this consultation. Alfonso Villagran M.D. DR: WILFRID JOB#: [id number] CC:
[2017-12-04 04:00] VITALS: BP 160/83
[2017-12-04 08:00] VITALS: BP 136/72
[2017-12-04] MEDS: Lisinopril 20mg tab ORAL SCH (08:43)
[2017-12-04] MEDS: Eliquis 2.5mg tablet ORAL SCH ×2 (08:43→19:59)
[2017-12-04] MEDS: Metoprolol Tartrate 50mg tab ORAL SCH ×2 (08:43→20:01)
[2017-12-04] MEDS: metFORMIN 500mg tab ORAL SCH ×2 (08:43→17:02)
--- NOTE | 2017-12-04 10:00 | History and Physical Report ---
DATE OF ADMISSION: 12/03/2017 HISTORY OF PRESENT ILLNESS: The patient is admitted for atrial fibrillation with rapid ventricular response, Cardizem and digoxin were given. The patient did have basically some shortness of breath and palpitations for three weeks, got worse in the past three days, admitted for atrial fibrillation with rapid ventricular response. Denies nausea, vomiting, or diarrhea. Denies shortness of breath. Denies cough. Denies heartburn. Denies chills. PAST MEDICAL HISTORY: History of atrial fibrillation, hypertension, NIDDM, history of CVA with right paresis, hyperlipidemia as well as chronic pain syndrome as well as neuropathy. PAST SURGICAL HISTORY: Bilateral hand surgery. SOCIAL HISTORY: History of smoking. No history of alcohol or illicit drugs. MEDICATIONS: Eliquis, Lipitor, Flexeril, gabapentin, glimepiride, hydrochlorothiazide, lisinopril, and metformin. FAMILY HISTORY: She does have history of hypertension and diabetes. REVIEW OF SYSTEMS: HEENT: Denies headaches. RESPIRATORY: Denies shortness of breath. Denies cough. CARDIOVASCULAR: No chest pain. GASTROINTESTINAL: The patient denies nausea, vomiting, or diarrhea. No fever or chills. PHYSICAL EXAMINATION: VITAL SIGNS: Temperature 97.2, pulse , and blood pressure 147/71. HEENT: PERRLA. NECK: Supple. No lymphadenopathy. CHEST: Clear to auscultation. CARDIOVASCULAR: Irregularly irregular. GASTROINTESTINAL: Soft, nontender, and nondistended. No organomegaly. EXTREMITIES: A 1+ edema. NEUROLOGIC: Reflexes equal on both sides. Moves all four extremities. LABORATORY DATA: WBC of 5.6, hemoglobin 13.9, and platelets 347,000. Sodium 140, potassium 3.4, BUN of 14, creatinine 0.9, and glucose of 206. ASSESSMENT AND PLAN: 1. Atrial fibrillation with rapid ventricular response. 2. Hypokalemia. I have asked Dr. Villagran and Dr. Cid to see the patient for management of above-mentioned diagnoses and treatment. Liv Hinton M.D. DR: BRITTANY JOB#: [id number] CC:
[2017-12-04 12:00] VITALS: BP 128/72
[2017-12-04 16:00] VITALS: BP 147/88
--- NOTE | 2017-12-04 16:30 | General Progress Note ---
Assessment/Plan Problem List: (1) Atrial fibrillation with RVR ICD Codes: I48.91 - Unspecified atrial fibrillation SNOMED: 153206863356615 (2) Back pain ICD Codes: M54.9 - Dorsalgia, unspecified SNOMED: 804712475 Status: progressing Assessment/Plan a fib w rvr is improving treatment of a fib per elementary principal afebrile clinically improving Subjective ROS Limited/Unobtainable: Yes Allergies: Coded Allergies: No Known Allergies (Unverified , 10/15/12) Objective Last 24 Hour Vital Signs Date Time Temp Pulse Resp B/P (MAP) Pulse Ox O2 Delivery O2 Flow Rate FiO2 12/04/17 12:00 98.0 70 18 128/72 (90) 98 98.0 12/04/17 12:00 54 12/04/17 09:00 Room Air 12/04/17 08:43 50 12/04/17 08:43 50 136/72 12/04/17 08:43 136/72 12/04/17 08:00 97.9 50 18 136/72 (93) 96 97.9 12/04/17 08:00 58 12/04/17 04:00 55 12/04/17 04:00 97.7 54 20 160/83 (108) 100 97.7 12/04/17 00:00 97.7 56 20 141/78 (99) 99 97.7 12/04/17 00:00 54 12/03/17 21:00 Room Air 12/03/17 20:51 63 134/70 12/03/17 20:00 97.9 63 20 134/70 (91) 98 97.9 12/03/17 20:00 54 Intake and Output 12/03/17 12/04/17 19:00 07:00 Intake Total 240 ml Balance 240 ml Intake Oral 240 ml # Voids 2 2 # Bowel Movements 2 Height (Feet): 5 Height (Inches): 3.00 Weight (Pounds): 149 Cardiovascular: regularly irregular Respiratory/Chest: lungs clear Liv Hinton MD Dec 04, 2017 16:30
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
[2017-12-04 20:00] VITALS: BP 172/89
[2017-12-04] MEDS ORDERED: LORazepam 1mg tab ORAL PRN (20:00)
--- NOTE | 2017-12-04 23:56 | Cardiology Progress Note ---
Assessment/Plan Assessment/Plan 1. Paroxysmal atrial fibrillation with rapid ventricular response, now in sinus rhythm, continue metoprolol and digoxin. Eliquis for prevention of thromboembolic events. 2. Diabetes mellitus. 3. Hx of Cerebrovascular accident with right hemiplegia. 4. Hx of HTN. Subjective Subjective Sinus rhythm at 66. Objective Last 24 Hour Vital Signs Date Time Temp Pulse Resp B/P (MAP) Pulse Ox O2 Delivery O2 Flow Rate FiO2 12/04/17 21:00 Room Air 12/04/17 20:46 66 12/04/17 20:01 74 172/89 12/04/17 20:00 99.3 74 20 172/89 (116) 97 99.3 12/04/17 16:00 97.6 72 18 147/88 (107) 100 97.6 12/04/17 16:00 66 12/04/17 12:00 98.0 70 18 128/72 (90) 98 98.0 12/04/17 12:00 54 12/04/17 09:00 Room Air 12/04/17 08:43 50 12/04/17 08:43 50 136/72 12/04/17 08:43 136/72 12/04/17 08:00 97.9 50 18 136/72 (93) 96 97.9 12/04/17 08:00 58 12/04/17 04:00 55 12/04/17 04:00 97.7 54 20 160/83 (108) 100 97.7 12/04/17 00:00 97.7 56 20 141/78 (99) 99 97.7 12/04/17 00:00 54 Intake and Output 12/03/17 12/04/17 19:00 07:00 Intake Total 240 ml Balance 240 ml Intake Oral 240 ml # Voids 2 2 # Bowel Movements 2 Objective HEENT: Anicteric. Pupils are equal, round, and reactive to light and accommodation. Extraocular muscles intact. NECK: JVP less than 5 cm. No carotid bruit. Carotid upstrokes 2+ bilaterally. CARDIOVASCULAR: Normal S1, S2. Regular rate and rhythm. No murmurs, gallops, or rubs. PMI is at fourth intercostal space left midclavicular line. LUNGS: Clear ABDOMEN: Soft, non-tender, non-distended, + BS EXTREMITIES: No evidence of edema, clubbing, or cyanosis. Tyshawn,Alfonso MD Dec 04, 2017 23:56
[2017-12-05] VITALS: BP 168/82
[2017-12-05] MEDS ORDERED: LORazepam 1mg tab ORAL PRN (02:36)
[2017-12-05 04:00] VITALS: BP 151/78
[2017-12-05 08:57] VITALS: BP 140/75
[2017-12-05] MEDS ORDERED: Lisinopril 20mg tab ORAL SCH (09:00)
[2017-12-05] MEDS ORDERED: Metoprolol Tartrate 50mg tab ORAL SCH (09:00)
[2017-12-05] MEDS: Eliquis 2.5mg tablet ORAL SCH ×2 (09:42→21:06)
[2017-12-05] MEDS: metFORMIN 500mg tab ORAL SCH ×2 (09:42→18:49)
[2017-12-05 12:00] VITALS: BP 148/74
--- NOTE | 2017-12-05 12:12 | General Progress Note ---
Assessment/Plan Problem List: (1) Atrial fibrillation with RVR ICD Codes: I48.91 - Unspecified atrial fibrillation SNOMED: 365635908501471 (2) Back pain ICD Codes: M54.9 - Dorsalgia, unspecified SNOMED: 363481109 Status: progressing Assessment/Plan a fib w rvr is improving treatment of a fib per oil field roustabout no cp no palpitation discuss w oil field roustabout re plan of care Subjective ROS Limited/Unobtainable: Yes Constitutional: Reports: no symptoms Allergies: Coded Allergies: No Known Allergies (Unverified , 10/15/12) Objective Last 24 Hour Vital Signs Date Time Temp Pulse Resp B/P (MAP) Pulse Ox O2 Delivery O2 Flow Rate FiO2 12/05/17 09:43 140/75 12/05/17 09:00 50 12/05/17 08:57 98.1 49 18 140/75 (96) 98 98.1 12/05/17 04:00 98.3 59 18 151/78 (102) 99 98.3 12/05/17 00:00 98.0 96 20 168/82 (110) 98 98.0 12/05/17 00:00 52 12/04/17 21:00 Room Air 12/04/17 20:46 66 12/04/17 20:01 74 172/89 12/04/17 20:00 99.3 74 20 172/89 (116) 97 99.3 12/04/17 16:00 97.6 72 18 147/88 (107) 100 97.6 12/04/17 16:00 66 Intake and Output 12/04/17 12/05/17 19:00 07:00 Intake Total 360 ml 100 ml Balance 360 ml 100 ml Intake Oral 360 ml 100 ml # Voids 2 2 Height (Feet): 5 Height (Inches): 3.00 Weight (Pounds): 149 Neck: supple Cardiovascular: normal rate Respiratory/Chest: lungs clear Abdomen: soft Liv Hinton MD Dec 05, 2017 12:12
[2017-12-05 16:00] VITALS: BP 149/76
--- NOTE | 2017-12-05 18:30 | Progress Note ---
DATE: 12/05/2017 SUBJECTIVE: The patient is calm, no behavior issues, has some anxiety and memory issues. MENTAL STATUS EXAMINATION: Alert and oriented times self, place, and situation. Mood is anxious to neutral. Affect is constricted, congruent with mood. Thought process is concrete. Thought content, no suicidal or homicidal ideation. Cognition is impaired memory. ASSESSMENT: 1. CVA. 2. Atrial fibrillation. 3. Anxiety disorder. PLAN: We will continue the current medication. Provide the patient with supportive therapy and reality orientation. Seema Justice M.D. DR: RODNEY JOB#: [id number] CC:
[2017-12-05 20:35] VITALS: BP 148/77
[2017-12-05] MEDS: Metoprolol Tartrate 50mg tab ORAL SCH (21:06)
[2017-12-06 00:26] VITALS: BP 135/66
[2017-12-06 04:59] VITALS: BP 135/74
[2017-12-06 07:58] VITALS: BP 121/75
[2017-12-06] MEDS: metFORMIN 500mg tab ORAL SCH (08:54)
[2017-12-06] MEDS: Eliquis 2.5mg tablet ORAL SCH (08:54)
[2017-12-06 08:55] VITALS: BP 121/75
[2017-12-06] MEDS: Metoprolol Tartrate 50mg tab ORAL SCH (08:55)
[2017-12-06] MEDS ORDERED: Lisinopril 20mg tab ORAL SCH (09:00)
--- NOTE | 2017-12-09 09:10 | Discharge Summary ---
Discharge Summary Discharge Summary _ DATE OF ADMISSION: 12/02/2017 DATE OF DISCHARGE: 12/06/2017 REASON FOR ADMISSION: 67 years old female with past medical history of stroke with right hemiplegia, hypertension, hyperlipidemia, diabetes mellitus, atrial fibrillation, presented with complaint of generalized weakness and palpitations. Patient was on anticoagulation with Eliquis. Patient reported palpitations since last night with sudden onset. No chest pain, mild shortness of breath, no nausea, no vomiting. Vital signs revealed tachycardia with heart rate of 130. EKG revealed atrial fibrillation with rapid ventricular response . Chest x-ray revealed no evidence of acute cardiopulmonary pathology. Laboratory workup revealed no leukocytosis, stable hemoglobin and hematocrit. Potassium 3.4, otherwise stable renal parameters and electrolytes. Troponin negative. ProBNP 2162. Patient admitted with diagnoses of atrial fibrillation with rapid ventricular response, hypokalemia. CONSULTANTS: transportation assistant Dr. Villagran psychiatrist [facility] COURSE: Patient admitted to telemetry floor. Patient started on Cardizem for rate control. Patient responded to Cardizem therapy. Anticoagulation with Eliquis was continued for thromboembolic prophylaxis. Patient converted to sinus rhythm, Digoxin and beta cristo subsequently provided for rate control. Patient continued to be in sinus rhythm. Echocardiogram revealed preserved ejection fraction 65-70%, moderate mitral regurgitation, mild tricuspid regurgitation and right ventricular systolic pressure of 40, consistent with mild pulmonary hypertension. Blood pressure was managed with beta cristo and YECENIA inhibitor, and remained stable. Blood sugar was managed with oral metformin . Pain management was addressed. Psychiatry seen and evaluated patient, and diagnosed patient with anxiety disorder. Patient was provided with supportive therapy and reality orientation. Symptomatic care provided Home medications continued Patient clinically stabilized and was ready for discharge home with home health services FINAL DIAGNOSES: Paroxysmal atrial fibrillation with rapid ventricular response- resolved Hypertension Diabetes History of cerebrovascular accident with residual right hemiplegia Anxiety disorder DISCHARGE MEDICATIONS: See Medication Reconciliation list. DISCHARGE INSTRUCTIONS: Patient was discharged home with home health services. Follow up with primary care provider in one week. I have been assigned to dictate discharge summary for this account. I was not involved in the patient's management. Janette Cruz NP Dec 09, 2017 09:10
== END 2017-12-06 11:45 | disposition home health service (06) | DRG 309 ==
LOC: EMR 14:10 → 2E 14:58 → EDBEDREQ 17:14 → 4W 12-05 02:35
DX: I48.0 Paroxysmal atrial fibrillation (principal); I69.351 Hemiplegia and hemiparesis following cerebral infarction affecting right dominant side; E87.6 Hypokalemia; E11.9 Type 2 diabetes mellitus without complications; I10 Essential (primary) hypertension; Z79.84 Long term (current) use of oral hypoglycemic drugs; M54.9 Dorsalgia, unspecified; F41.9 Anxiety disorder, unspecified; E78.5 Hyperlipidemia, unspecified; G89.4 Chronic pain syndrome; Z79.01 Long term (current) use of anticoagulants; I34.0 Nonrheumatic mitral (valve) insufficiency; I36.1 Nonrheumatic tricuspid (valve) insufficiency; I37.1 Nonrheumatic pulmonary valve insufficiency
CPT/HCPCS: 36415; 71045; 80053; 80162; 82550; 82553; 82962; 83880; 84484; 85025; 85610; 85730; 93005; 93306

== ENCOUNTER → 2018-12-23 | Outpatient (CLI) | payer MEDICARE, MEDICAID ==
--- NOTE | 2018-12-23 12:26 | Diagnostic Imaging Report ---
Clinical Indication: Abdominal pain Technique: Patient given oral contrast. IV administration nonionic contrast. Multiphasic spiral acquisitions obtained through the abdomen and pelvis. Multiplanar reconstructions were generated. Total dose length product 1355.46 mGycm. CTDIvol(s) 15.28,17.58 mGy. Dose reduction achieved using automated exposure control Comparison: 02/07/2016; also MRI of 03/25/2016 Findings: The pancreatic head is somewhat prominent. No more so than previously and no focal attenuation abnormality is demonstrated. Mild ectasia of the pancreatic duct and common bile duct are unchanged from the earlier study. Pancreatic body and tail appear unremarkable. No peripancreatic lymphadenopathy demonstrated. The liver demonstrates minimal focal fatty change, also previously demonstrated. Gallbladder, spleen, adrenals, kidneys are unremarkable. No renal or ureteral calculi, hydronephrosis, or hydroureter demonstrated. Again demonstrated is a fat-containing left ovarian mass measuring approximately 4.1 cm in diameter. No right ovarian mass demonstrated. The bladder is unremarkable. The appendix is normal. Moderate retained stool is noted. There are colonic diverticula. No evidence of diverticulitis. No small bowel distention or small bowel wall thickening. No free or loculated intraperitoneal gas or fluid. The distal esophagus, stomach, duodenum are unremarkable. The included lung bases are clear. The bones demonstrate degenerative spondylosis changes. Impression: No definite pancreatic abnormality, despite stated clinical history of pancreatic carcinoma Mildly ectatic extrahepatic bile ducts and pancreatic duct, unchanged from prior exam and likely baseline for this patient Left ovarian dermoid again demonstrated Colonic diverticulosis. No evidence of diverticulitis The CT scanner at [facility] is accredited by the [employer] and the scans are performed using protocols designed to limit radiation exposure to as low as reasonably achievable to attain images of sufficient resolution adequate for diagnostic evaluation.
== END | disposition home or self-care (01) ==
LOC: CAT 09:39 → EDSTATUS 11:00
DX: R10.9 Unspecified abdominal pain (principal); K57.90 Diverticulosis of intestine, part unspecified, without perforation or abscess without bleeding; Z85.07 Personal history of malignant neoplasm of pancreas; M47.9 Spondylosis, unspecified
CPT/HCPCS: 74177; Q9967

== ENCOUNTER 2019-01-25 14:05 | Outpatient (CLI) | payer MEDICARE, MEDICAID ==
[2019-01-25] MEDS ORDERED: METFORMIN HCL1000 M1 ORAL (14:20)
--- NOTE | 2019-01-25 14:21 | General Progress Note ---
Assessment/Plan Problem List: (1) Colonoscopy planned SNOMED: 605852227 (2) GERD (gastroesophageal reflux disease) ICD Codes: K21.9 - Gastro-esophageal reflux disease without esophagitis SNOMED: 034460171 (3) Chronic pancreatitis ICD Codes: K86.1 - Other chronic pancreatitis SNOMED: 799684864 (4) Colonic polyp ICD Codes: K63.5 - Polyp of colon SNOMED: 18357472 (5) Atrial fibrillation with RVR ICD Codes: I48.91 - Unspecified atrial fibrillation SNOMED: 941778403367808 Assessment/Plan: no pancreatitis symptoms CT reviewed plan repeat colonoscopy given poor prep last time Subjective ROS Limited/Unobtainable: Yes Allergies: Coded Allergies: No Known Allergies (Unverified , 10/15/12) Objective General Appearance: alert EENT: normal ENT inspection Neck: supple Cardiovascular: normal rate Respiratory/Chest: lungs clear Abdomen: normal bowel sounds, non tender, soft Extremities: non-tender Rancho Cox MD Jan 25, 2019 14:21
[2019-01-25 14:54] VITALS: BP 166/78
== END 2019-01-25 15:51 | disposition home or self-care (01) ==
LOC: PAN 14:05
DX: K21.9 Gastro-esophageal reflux disease without esophagitis (principal); K86.1 Other chronic pancreatitis; K63.5 Polyp of colon; I48.91 Unspecified atrial fibrillation